=== PATIENT | female | born 1965 | race American Indian/Alaskan Native ===

== ENCOUNTER 2017-12-24 07:59 | Outpatient (CLI) | payer BC ==
--- NOTE | 2017-12-24 11:31 | Mammography Report ---
BILATERAL DIGITAL SCREENING MAMMOGRAM WITH CAD: 12/24/17 07:59:00 CLINICAL: Routine screening.Breast cancer survivor status post right partial mastectomy with radiation therapy. COMPARISON:01/27/16 FINDINGS: Bilateral fibroglandular densities. The right breast is smaller than the left stable outer postsurgical scar. No mass, suspicious architectural distortion or suspicious calcifications. IMPRESSION: No mammographic evidence of malignancy. BI-RADS CATEGORY: 2 -- Benign RECOMMENDATION: Routine mammographic screening in one year. COMMENT: Patient follow-up letters are generated via our [employer] application.
== END 2017-12-24 08:00 | disposition home or self-care (01) ==
LOC: SPVWC 07:59
PROVIDERS: ATTEND Obstetrics & Gynecology
DX: Z12.31 Encounter for screening mammogram for malignant neoplasm of breast (principal)
CPT/HCPCS: 77067

== ENCOUNTER 2019-05-25 08:45 | Outpatient (CLI) | payer BC ==
--- NOTE | 2019-05-25 14:47 | Mammography Report ---
DIGITAL SCREENING MAMMOGRAM WITH CAD, 05/25/2019 INDICATION: Routine screening mammography. Breast cancer survivor status post right partial mastectom y and radiation therapy. TECHNIQUE: Digital bilateral 2D mammography was obtained in the craniocaudal and mediolateral obliq ue projections. This examination was interpreted with the benefit of Computer-Aided Detection analysi s. COMPARISON: 12/24/2017 FINDINGS: Breast Density: The breasts are almost entirely fatty. There is no evidence of dominant mass, suspicious calcifications or architectural distortion in eithe r breast. The right breast is smaller than the left. Minimal right postsurgical scar. IMPRESSION: No mammographic evidence of malignancy. Follow up recommendation: Routine yearly BI-RADS Category 2: Benign. A "normal" or negative report should not discourage follow up or biopsy of a clinically significant f inding. A written summary of these findings will be mailed to the patient. The patient will be entered into a mammography reporting system which will generate a reminder letter for the patient's next appointmen t at the appropriate interval. The [employer] recommends yearly mammograms starting at age 40 and continuing as l zhen as a woman is in good health. Breast MRI is recommended for women with an approximate 20-25% or greater lifetime risk of breast cancer, including women with a strong family history of breast or ova ean cancer or who have been treated for Hodgkin's disease. Signer Name: Les Jane MD Signed: 05/25/2019 2:43 PM Workstation Name: [id number]
== END 2019-05-25 08:46 | disposition home or self-care (01) ==
LOC: SPVWC 08:45
PROVIDERS: ATTEND Obstetrics & Gynecology
DX: Z12.31 Encounter for screening mammogram for malignant neoplasm of breast (principal); N64.89 Other specified disorders of breast
CPT/HCPCS: 77067

== ENCOUNTER 2021-03-13 08:09 | Outpatient (CLI) | payer BC ==
--- NOTE | 2021-03-14 08:37 | Mammography Report ---
BILATERAL DIGITAL SCREENING MAMMOGRAM WITH CAD HISTORY: Screening mammogram. TECHNIQUE: Routine digital mammographic imaging performed. This examination was interpreted with grecia fisher benefit of Computer-aided Detection analysis. COMPARISON: 05/25/2019, 12/24/2017. FINDINGS: Breast Density: predominantly fatty breast parenchymal pattern. Digital CC and MLO views demonstrate no mammographic evidence of malignancy. Stable minimal right br east postsurgical change. IMPRESSION: No mammographic evidence of malignancy. If the clinical examination remains stable, recommend bilate ral mammogram in approximately one year. BIRADS 2: Benign Finding(s). FURTHER INFORMATION: According to the [employer], yearly mammograms are recommend ed starting at age 40 and continuing as long as a woman is in good health. Clinical Breast Exams shou ld be part of a periodic health exam-about every 3 years for women in their 20s and 30s and every yea r for women 40 and over. Breast self exam is an option for women starting in their 20s. Any breast ch viktor noted on a breast self exam should be reported promptly to the patient's healthcare provider. Br east MRI is recommended for women with an approximately 20-25% or greater lifetime risk of breast can cer, including women with a strong family history of breast or ovarian cancer and women who have been treated for Hodgkin's disease. A negative Mammography report should not discourage follow up or biopsy of a clinically significant f inding and/or abnormality. Dense breast tissue may obscure small neoplasms. The patient will be entered into a reminder system with a target due date for the next screening mamm ogram. Signer Name: Marin Marx MD Signed: 03/14/2021 8:33 AM Workstation Name: [id number]
== END 2021-03-13 08:10 | disposition home or self-care (01) ==
LOC: SPVWC 08:09
PROVIDERS: ATTEND Obstetrics & Gynecology
DX: Z12.31 Encounter for screening mammogram for malignant neoplasm of breast (principal)
CPT/HCPCS: 77067